=== PATIENT | female | born 1945 | race Caucasian/White ===

== ENCOUNTER 2017-03-02 06:58 | Day surgery (SDC) | payer OTHER ==
[2017-03-01 10:38] VITALS: BMI 21.9
[2017-03-02] MEDS ORDERED: PROPOFOL 20 ML ONE ×3 (07:56)
[2017-03-02] MEDS ORDERED: LIDOCAINE HCL/PF 2% SDV 5ML VIAL ONE (07:57)
[2017-03-02 08:43] VITALS: TEMP 97.7
[2017-03-02 09:14] VITALS: BP 107/51; PULSE 56
--- NOTE | 2017-03-03 12:20 | PATH ---
Surgical Pathology Report Patient Name: CHRISTIANO GREEN [facility]. Rec. #: [id number] /Age/Gender: 1945 (Age: 71) / F Account: [id number] Location: [facility]-ENDOSCOPY Taken: 03/02/2017 Received: 03/02/2017 Reported: 03/03/2017 Physicians: Janet Gill M.D. Specimen(s) Received A: BX 2 ND PORTION DUODENUM AND BULB B: BX GASTRIC CARDIA C: BX GASTRIC ANTRUM Clinical History Epigastric pain, acid reflux Atrophic gastritis, sliding hiatal hernia, gastric polyp Final Diagnosis A. DUODENUM, SECOND PORTION AND BULB, BIOPSY: DUODENAL MUCOSA WITH NO PATHOLOGIC CHANGES. NO HISTOLOGIC EVIDENCE OF GLUTEN SENSITIVE ENTEROPATHY (CELIAC SPRUE) IDENTIFIED. B. STOMACH, POLYP CARDIA, BIOPSY: GASTRIC FUNDIC MUCOSA WITH NO PATHOLOGIC CHANGES. IMMUNOSTAIN FOR H. PYLORI IS NEGATIVE. C. STOMACH, ANTRUM, BIOPSY: GASTRIC ANTRAL MUCOSA WITH NO PATHOLOGIC CHANGES. IMMUNOSTAIN FOR H. PYLORI IS NEGATIVE. Electronically Signed Edmond Tamayo M.D. Gross Description A. Received in formalin, labeled "biopsy second portion of duodenum and bulb" are 3 [place], irregular portions of soft tissue ranging from 0.3-0.4 cm. in greatest dimension. The specimens are submitted in toto in one cassette. B. Received in formalin, labeled "gastric cardia polyp" is a [place], irregular portion of soft tissue measuring 0.4 cm. in greatest dimension. The specimen is submitted in toto in one cassette. C. Received in formalin, labeled "biopsy gastric antrum" are 3 [place], irregular portions of soft tissue ranging from 0.3-0.4 cm. in greatest dimension. The specimens are submitted in toto in one cassette. DL/03/02/2017 saudi03/02/2017
== END 2017-03-02 09:38 | disposition home or self-care (01) ==
LOC: JASU-ENDO 06:58
PROVIDERS: ATTEND Internal Medicine Gastroenterology
PROC: 0DB68ZX Excision of Stomach, Via Natural or Artificial Opening Endoscopic, Diagnostic (ICD-10-PCS; 2017-03-02)
PROC: 0DB98ZX Excision of Duodenum, Via Natural or Artificial Opening Endoscopic, Diagnostic (ICD-10-PCS; principal; 2017-03-02 08:00)
DX: K21.9 Gastro-esophageal reflux disease without esophagitis (principal); K44.9 Diaphragmatic hernia without obstruction or gangrene; K29.40 Chronic atrophic gastritis without bleeding; K31.7 Polyp of stomach and duodenum
CPT/HCPCS: 88305-TC; 88342-TC

== ENCOUNTER 2022-04-21 04:22 | Day surgery (SDC) | payer OTHER ==
[2022-04-20 12:24] VITALS: BMI 21.5
[2022-04-21 09:40] VITALS: TEMP 98
[2022-04-21 10:03] VITALS: RESP 18
[2022-04-21 10:13] VITALS: BP 133/55; PULSE 67
== END 2022-04-21 10:40 | disposition home or self-care (01) ==
LOC: JASU-ENDO 04:22
PROVIDERS: ATTEND Internal Medicine Gastroenterology
PROC: 0D5K8ZZ Destruction of Ascending Colon, Via Natural or Artificial Opening Endoscopic (ICD-10-PCS; principal; 2022-04-21 09:00)
DX: Z12.11 Encounter for screening for malignant neoplasm of colon (principal); Z86.010 Personal history of colon polyps; D12.2 Benign neoplasm of ascending colon; K57.30 Diverticulosis of large intestine without perforation or abscess without bleeding; K64.8 Other hemorrhoids
CPT/HCPCS: 88305-TC

== ENCOUNTER 2022-05-03 04:35 | Day surgery (SDC) | payer OTHER ==
[2022-04-30 09:40] VITALS: BMI 21.9
[2022-05-03 10:17] VITALS: RESP 12
[2022-05-03 10:29] VITALS: BP 184/83; PULSE 77
[2022-05-03 15:29] VITALS: TEMP 97
== END 2022-05-03 10:40 | disposition home or self-care (01) ==
LOC: JASU-ENDO 04:35
PROVIDERS: ATTEND Internal Medicine Gastroenterology
PROC: 0DB78ZX Excision of Stomach, Pylorus, Via Natural or Artificial Opening Endoscopic, Diagnostic (ICD-10-PCS; 2022-05-03)
PROC: 0DB28ZX Excision of Middle Esophagus, Via Natural or Artificial Opening Endoscopic, Diagnostic (ICD-10-PCS; 2022-05-03)
PROC: 0DB38ZX Excision of Lower Esophagus, Via Natural or Artificial Opening Endoscopic, Diagnostic (ICD-10-PCS; 2022-05-03)
PROC: 0DB98ZX Excision of Duodenum, Via Natural or Artificial Opening Endoscopic, Diagnostic (ICD-10-PCS; principal; 2022-05-03 09:00)
DX: K29.40 Chronic atrophic gastritis without bleeding (principal); K21.00 Gastro-esophageal reflux disease with esophagitis, without bleeding; K92.1 Melena
CPT/HCPCS: 88305-TC; 88342-TC